=== PATIENT | male | born 1970 | race Caucasian/White ===

== ENCOUNTER 2018-03-24 21:00 | Emergency (ER) | payer OTHER ==
[~2018-03-24] VITALS: Ht 180.3 cm; Wt 117.4 kg
[2018-03-24 22:22] LABS: HEMATOCRIT 48.1 % (38.0-50.0); HEMOGLOBIN 16.5 G/DL (12.5-16.6); MCH 28.9 PG (29.0-34.0); MCHC 34.3 G/DL (30.0-36.0); MCV 84.2 FL (86-99); PLATELET COUNT 271 K/uL (156-360); RBC DIS.WIDTH-CV 12.9 % (11.8-14.6); RBC DIS.WIDTH-SD 39.9 % (39-53); RED BLOOD COUNT 5.71 M/uL (4.00-5.50); WHITE BLOOD COUNT 9.9 K/uL (4.1-10.2)
[2018-03-24 22:32] LABS: CHLORIDE 107 mEq/L (99-109); POTASSIUM 4.6 mEq/L (3.7-5.4)
[2018-03-24 22:33] LABS: SODIUM 141 mEq/L (136-147)
[2018-03-24 22:34] LABS: GLUCOSE 101 mg/dL (70-99)
[2018-03-24 22:38] LABS: CREATININE 1.1 mg/dL (0.6-1.3)
[2018-03-24 22:39] LABS: UREA NITROGEN (BUN) 18 mg/dL (9-23)
[2018-03-24 22:40] LABS: GFR ESTIMATE (CALCULATED) > 59 mL/min/ (58.99-99999)
[2018-03-24 23:52] VITALS: BP 122/76
== END 2018-03-24 23:53 | disposition home or self-care (01) ==
LOC: EME 21:00 → RME 21:00
PROVIDERS: Physician Assistant Medical
PROC: 0HQDXZZ Repair Right Lower Arm Skin, External Approach (ICD-10-PCS; principal; 2018-03-24)
PROC: 3E0234Z Introduction of Serum, Toxoid and Vaccine into Muscle, Percutaneous Approach (ICD-10-PCS; principal; 2018-03-24)
DX: S56.921A Laceration of unspecified muscles, fascia and tendons at forearm level, right arm, initial encounter (principal); S51.811A Laceration without foreign body of right forearm, initial encounter; W26.8XXA Contact with other sharp object(s), not elsewhere classified, initial encounter; R42 Dizziness and giddiness
CPT/HCPCS: 73090; 80048; 85027; 85610; 86850; 86900; 86901; J2405; J7030